=== PATIENT | male | born 1990 ===

== ENCOUNTER 2020-11-25 03:30 | Emergency (ER) | payer MEDICAID ==
[~2020-11-25] VITALS: Ht 188 cm; Wt 85.5 kg
[2020-11-25 03:33] VITALS: BP 152/97
[2020-11-25] MEDS ORDERED: ACETAMINOPHEN 500 MG TABLET PO ONE (04:30)
== END 2020-11-25 04:41 | disposition left against medical advice (07) ==
LOC: ED 04:20
DX: R06.00 Dyspnea, unspecified (principal); R50.9 Fever, unspecified; F15.10 Other stimulant abuse, uncomplicated; Z21 Asymptomatic human immunodeficiency virus [HIV] infection status; F17.210 Nicotine dependence, cigarettes, uncomplicated
CPT/HCPCS: 93005; 99406